=== PATIENT | male | born 1995 | race Two or more races ===

== ENCOUNTER 2025-05-31 22:34 | Emergency (ER) | payer SELFPAY ==
[2025-05-31 22:42] VITALS: BP 137/78
[2025-05-31 23:51] VITALS: BP 127/72
[2025-05-31 23:53] VITALS: BP 127/72
--- NOTE | 2025-06-01 00:27 | ED.GENMED ---
History of Present Illness
<Terri Worthington PA-C - Last Filed: 06/01/25 04:46>
General
Chief Complaint: Abdominal Pain
Source: patient
Exam Limitations: none
Time Seen by Provider: 06/01/25 00:19
Nursing documentation reviewed up to this point in time: agreed with
History of Present Illness
History of Present Illness:
Note:
CHIEF COMPLAINT(S)
Abdominal pain
HISTORY OF PRESENT ILLNESS
The patient is a 30-year-old male with no pmh with a complaint of abdominal pain. Patient is present with friend who is translating for him. He experienced the onset of pain yesterday, which is described as intermittent and accompanied by vomiting,
occurring twice last night. This episode resembles a previous occurrence approximately 2 to 3 weeks ago; however, the current episode is reported as more severe, especially last night. The pain started around 2:00 AM and persisted off and on for
about four hours, during which he was unable to sleep until around 6:00 AM. He feels it diffusely across the abdomen but reports that it will localize to the RLQ at times. Today, the patients pain has lessened in intensity but remains present and
continues to fluctuate in severity. There are no current symptoms of nausea, urinary issues, or significant diarrhea. No recent travel. The patient notes that the pain sometimes extends to the right side but does not radiate to the back or chest. No
clear exacerbating or relieving factors have been identified by the patient. He denies chest pain, shortness of breath, fevers, chills. Patient denies groin pain. He denies testicular pain.
PAST SURGICAL HISTORY
Denies any prior abdominal surgeries, including appendectomy or cholecystectomy.
Patient does not take any daily medications
SOCIAL HISTORY
Denies daily alcohol consumption or recreational drug use.
PHYSICAL EXAM
- General: Alert, no acute distress.
- Skin: Warm, dry.
- Head: Normocephalic, atraumatic.
- Neck: Supple, trachea midline.
- Eye, Ears, Nose, Mouth and Throat: Oral mucosa moist.
- Cardiovascular: Regular rate and rhythm, no murmurs. Normal peripheral perfusion, no edema.
- Respiratory: Respirations are non-labored. No wheezes, rales, or rhonchi
- Gastrointestinal: Abdomen nondistended,no epigastric tenderness to palpation, RLQ tenderness to palpation noted with guarding
- Neurological: Alert and oriented to person, place, time, and situation, no focal neurological deficit observed.
- Psychiatric: Cooperative, appropriate mood and affect.
PLAN
- Obtain a computed tomography (CT) scan to rule out appendicitis and to evaluate for other potential abdominal issues.
- Initiate intravenous (IV) access to provide medication for pain and nausea management.
- Monitor for improvement or progression of symptoms.
DIFFERENTIAL DIAGNOSIS
The Differential Diagnosis includes, in no particular order and is not limited to:
1. Appendicitis
2. Gastroenteritis
3. Peptic Ulcer Disease
4. Biliary Colic
5. Pancreatitis
6. Diverticulitis
7. Small Bowel Obstruction
8. Renal Colic
9. Irritable Bowel Syndrome
10. Gastritis
CHART REVIEW
No prior ER physician documentation to review
UPDATE
2:55 am--Patient notes that his pain is improved from earlier
He reports that he does have a primary care provider but cannot follow up with them yet because there is a gap in his insurance coverage which is expected to kick in in 2 weeks
MDM/DISPOSITION
The patient is a 30-year-old male with no pmh with a complaint of abdominal pain. Patient is present with friend who is translating for him. He experienced the onset of pain yesterday, which is described as intermittent and accompanied by vomiting,
occurring twice last night. He has not taken anything for the pain. On physical exam, he is well-appearing in no acute distress. His vitals are stable. He is afebrile. He has no upper abdominal tenderness but does have some guarding noted in the
right lower quadrant. Labs reviewed, no leukocytosis, CMP unremarkable. Lipase normal. Urinalysis shows no evidence of infection. Unclear etiology to patient's pain at this time however workup reassuring, patient feels well enough to go home.
Discussed strict return precautions, discussed following up in the office with primary care provider. Patient does have PCP however lacks insurance coverage at this time and is not able to see them, I did provide patient follow-up for the free
clinic. Also discussed evaluation by gastroenterology considering this is patient's second episode of symptoms. Patient stable for discharge.
Review of Systems
<Terri Worthington PA-C - Last Filed: 06/01/25 04:46>
Review of Systems
All Other Systems: ROS reviewed and negative except as documented in HPI and ROS
Phy Exam
<Terri Worthington PA-C - Last Filed: 06/01/25 04:46>
Physical Exam
Physical Exam:
see hpi
<Jane Nix PA-C - Last Filed: 06/01/25 15:17>
Physical Exam
Physical Exam:
GENERAL: Alert , in no apparent distress
EYE: pupils equal and reactive
NECK: Supple
ENT: o/p clr, mmm.
CARDIAC: Regular rate and rhythm .
LUNGS: Clear breath sounds bilaterally, no acute respiratory distress, no wheezes/rales/rhonchi
ABDOMEN: Soft, tender right lower quadrant no guarding or rebound, no focal neuro deficits
SKIN: Warm and dry, skin intact.
MUSCULOSKELETAL: No edema, well perfused. neg tim's sign
PSYCH: Normal and appropriate interaction.
Course
<Terri Worthington PA-C - Last Filed: 06/01/25 04:46>
Orders/Labs/Results
Orders:
Orders
06/01/25 00:41
CT Abd/Pel (IV only)-[facility] only Urgent
Comment:
Reason For Exam: RLQ pain
0.9% Sodium Chloride 500 ml [Nss] 500 ml IV Wide Open mls/hr
Ketorolac [Toradol] 15 mg IV NOW STA
Ondansetron Injectable [Zofran] 4 mg IV NOW STA
06/01/25 00:48
Complete Blood Count/With Diff Urgent
Comprehensive Metabolic Panel Urgent
Lipase Urgent
06/01/25 02:09
Urinalysis Reflex To Culture Urgent
Date Specimen was Collected: 06/01/25
Time Specimen was Collected: 02:07
Urine Microscopic Reflex Cult Urgent
06/01/25 14:09
Lidocaine HCl/Pf [Xylocaine-Mpf 1% Vial] 50 mg .ROUTE .STK-MED ONE
Propofol [Diprivan] 20 ml .ROUTE .STK-MED
Rocuronium [place] [Rocuronium] 50 mg .ROUTE .STK-MED ONE
06/01/25 14:10
Dexamethasone Sod Phosphate [Decadron] 20 mg .ROUTE .STK-MED ONE
Ondansetron Injectable [Zofran] 4 mg .ROUTE .STK-MED ONE
06/01/25 14:29
Fentanyl Citrate/Pf [Sublimaze] 100 mcg .ROUTE .STK-MED ONE
Midazolam HCl [Versed] 2 mg .ROUTE .STK-MED ONE
06/01/25 14:46
Ketamine 5 ml .ROUTE .STK-MED
Abnormal Lab Results
06/01/25 06/01/25
00:48 02:09
Absolute Monos (auto) 0.7 H 10^3/uL
(0.1-0.6)
Glucose 107 H mg/dl
(70-99)
Urine Urobilinogen 2+ A
(Neg - 1+)
Urine Albumin (Reflex) 2+ A
(Neg - Trace)
06/01/25 00:48
06/01/25 00:48
Vital Signs
Initial and Last Documented VS:
Initial Vital Signs
Temp Pulse Resp BP Pulse Ox
36.8 C 74 20 137/78 98
05/31/25 22:42 05/31/25 22:42 05/31/25 22:42 05/31/25 22:42 05/31/25 22:42
Last Documented Vital Signs
Temp Pulse Resp BP Pulse Ox
36.8 C 74 20 127/72 99
05/31/25 22:42 05/31/25 22:42 05/31/25 22:42 05/31/25 23:53 06/01/25 00:28
<Jane Nix PA-C - Last Filed: 06/01/25 15:17>
Orders/Labs/Results
Orders:
Orders
06/01/25 00:41
CT Abd/Pel (IV only)-[facility] only Urgent
Comment:
Reason For Exam: RLQ pain
0.9% Sodium Chloride 500 ml [Nss] 500 ml IV Wide Open mls/hr
Ketorolac [Toradol] 15 mg IV NOW STA
Ondansetron Injectable [Zofran] 4 mg IV NOW STA
06/01/25 00:48
Complete Blood Count/With Diff Urgent
Comprehensive Metabolic Panel Urgent
Lipase Urgent
06/01/25 02:09
Urinalysis Reflex To Culture Urgent
Date Specimen was Collected: 06/01/25
Time Specimen was Collected: 02:07
Urine Microscopic Reflex Cult Urgent
06/01/25 14:09
Lidocaine HCl/Pf [Xylocaine-Mpf 1% Vial] 50 mg .ROUTE .STK-MED ONE
Propofol [Diprivan] 20 ml .ROUTE .STK-MED
Rocuronium [place] [Rocuronium] 50 mg .ROUTE .STK-MED ONE
06/01/25 14:10
Dexamethasone Sod Phosphate [Decadron] 20 mg .ROUTE .STK-MED ONE
Ondansetron Injectable [Zofran] 4 mg .ROUTE .STK-MED ONE
06/01/25 14:29
Fentanyl Citrate/Pf [Sublimaze] 100 mcg .ROUTE .STK-MED ONE
Midazolam HCl [Versed] 2 mg .ROUTE .STK-MED ONE
06/01/25 14:46
Ketamine 5 ml .ROUTE .STK-MED
Abnormal Lab Results
06/01/25 06/01/25
00:48 02:09
Absolute Monos (auto) 0.7 H 10^3/uL
(0.1-0.6)
Glucose 107 H mg/dl
(70-99)
Urine Urobilinogen 2+ A
(Neg - 1+)
Urine Albumin (Reflex) 2+ A
(Neg - Trace)
06/01/25 00:48
06/01/25 00:48
Vital Signs
Initial and Last Documented VS:
Initial Vital Signs
Temp Pulse Resp BP Pulse Ox
36.8 C 74 20 137/78 98
05/31/25 22:42 05/31/25 22:42 05/31/25 22:42 05/31/25 22:42 05/31/25 22:42
Last Documented Vital Signs
Temp Pulse Resp BP Pulse Ox
36.8 C 74 20 127/72 99
05/31/25 22:42 05/31/25 22:42 05/31/25 22:42 05/31/25 23:53 06/01/25 00:28
<Jane Nix PA-C - Last Filed: 06/01/25 15:17>
MDM/Problems Addressed
Differential Diagnosis Includes:
see MDM
MDM/Problems Addressed:
Note:
CHIEF COMPLAINT(S)
Abdominal pain and vomiting.
HISTORY OF PRESENT ILLNESS
The patient is a 30 y/o male who presents with abdominal pain after being called back for radiologic discrepancy from last night.
pt saysThe symptoms started two to three weeks ago and initially resolved after 1 day but recurred yesterday. The patient experienced vomiting two to three times during the night and localized RLQ pain.
There was no accompanying fever reported. pt was seen last night
had labs (normal) and ct which was read as neg
he went home with continued RLQ pain
was called by radiologist saying that the appendix appears dilated and concerned pt had acute appendicitis.
i called the patient and spke with him and his brother who translated for me
he said hew as still having pain and he was told to return
The patient had his last meal the previous evening around 8 or 9 PM. Today, the patient has not had anything to eat or drink after waking up.
ADDITIONAL HISTORY OBTAINED FROM SOURCES OTHER THAN THE PATIENT
The patients brother, serving as a steward/stewardess club car, and the mother provided additional context for the timeline of symptoms and episodes of vomiting.
EXTERNAL RECORDS REVIEWED
Overnight radiology reports indicated no immediate findings; however, subsequent review by the morning radiologist noted slight dilation of the appendix, raising suspicion for appendicitis.
PLAN
The plan is to consult an on-call surgeon to evaluate the need for potential surgical intervention, considering the possibility of appendicitis. The patient is advised not to consume any oral intake due to the potential need for surgery. An
intravenous line will be re-established for further medical management and fluid administration.
DIFFERENTIAL DIAGNOSIS
The Differential Diagnosis includes, in no particular order and is not limited to:
1. Appendicitis
2. Gastroenteritis
3. Intestinal obstruction
4. Urinary tract infection
5. Gallbladder disease
6. Peptic ulcer disease
7. Mesenteric lymphadenitis
8. Pancreatitis
9. Viral gastroenteritis
10. Inflammatory bowel disease
30-year-old male returns for an over read of the CT scan showing possible acute appendicitis. Patient is tender in his right lower quadrant and had vomiting without fever. He last ate last night. I spoke with on-call surgeon Dr. Pratt who will
see the patient. IV Zosyn and n.p.o. status, plan for OR today
<Terri Worthington PA-C - Last Filed: 06/01/25 04:46>
*Pulse Oximetry
SaO2: 99
Oxygen Mode of Delivery: Room air
Patient hypoxic: no
*Critical Care Note
Total Time (30-74mins, 75-104mins- exclusive of procedures): Not Applicable
<Jane Nix PA-C - Last Filed: 06/01/25 15:17>
Update Note
Update Note:
06/01/2025 0836 AM
Received a call from [employer] saying the patient's appendix is slightly dilated and they disagree with the vision read overnight. I called the patient's number however no one answered. I called the primary care office and they were able to give me
another number with the last 4 digits [phone]. The patient did not answer the phone and then got his brother on the line because he does not speak [place]. The brother is going to translate to the patient that he needs to return to the emergency
department for concerns for appendicitis.
ED Attending Note
<Terri Worthington PA-C - Last Filed: 06/01/25 04:46>
-
Portions of this chart may have been created with voice recognition software.� Occasional wrong word or��sound alike� substitutions may have occurred due to the inherent limitations of voice recognition software.
Discharge Plan
Departure
Patient Disposition: Home (Routine Discharge)
Date of Disposition: 06/01/25
Time of Disposition: 03:03
Patient with high blood pressure during this ER visit?: Yes
Condition: Good
Discharge Problem:
Abdominal pain
Instructions: Abdominal Pain, BLOOD PRESSURE
Prescriptions:
No Action
No Current Medications
0
Referrals:
[facility] [Provider Group] - Call in 1-3 days for appt
Radha Figueroa MD [Active, Gastroenterology] - Call in 1-3 days for appt
Jyoti Leggett DO [Family Provider, Family Practice]
Activity Restrictions/Additional Instructions:
You can take Tylenol and Ibuprofen as needed for pain. Should you have the intermittent cramping again, you can try a bentyl tablet.
I highly recommend following up with your primary care provider. I also recommend evaluation by gastroenterology if you have continued discomfort.
PLEASE RETURN TO THE ER SHOULD YOU DEVELOP CHEST PAIN, SHORTNESS OF BREATH, AN ACUTE WORSENING OF YOUR RETURN OF YOUR SYMPTOMS WITHIN THE NEXT FEW DAYS, INTRACTABLE NAUSEA OR VOMITING, BLOODY STOOLS, VOMITING BLOOD, OR ANY OTHER SIGNS OR SYMPTOMS
WORRISOME TO YOU.
Interventions
Interventions:
*Risk Screen - Suicide Last Done: 06/01/25 03:21
*General Assessment Last Done: 05/31/25 22:42
*Neglect/Abuse Screening Last Done: 06/01/25 03:21
*ED- Fall Risk Assessment Last Done: 05/31/25 22:42
*ED COVID-19 Vaccine History Last Done: 06/01/25 03:21
*ED Influenza Vaccine History Last Done: 06/01/25 03:21
*Nursing Disposition Last Done: 06/01/25 03:21
EE-Gxssjm-Lxyvbriidg Assessment Last Done: 05/31/25 23:54
Discharge Date and Time
Discharge Date/Time: 06/01/25 03:22
Print Language: NEPALESE
[2025-06-01] MEDS: TORADOL 15 MG IV (00:49)
[2025-06-01] MEDS: ZOFRAN 4 MG IV (00:49)
[2025-06-01] MEDS: NSS 500 IV (00:50)
[2025-06-01 01:08] LABS: Hematocrit 40.0 % (39.0-52.0); Hemoglobin 13.6 g/dL (13.0-18.0); Mean Corp Hgb Conc. 34.0 g/dL (33.0-37.0); Mean Corpuscular Volume 84.0 fL (80.0-94.0); Nucleated Red Blood Cells % 0 % (-); Platelet Count 173 10^3/uL (130-400); Red Cell Dist. Width 12.4 % (11.5-14.5)
[2025-06-01 01:29] LABS: ALT (SGPT) 24 U/L (0-50); AST (SGOT) 18 U/L (17-59); Albumin 4.4 g/dl (3.5-5.0); Alkaline Phosphatase 74 U/L (38-126); Blood Urea Nitrogen 14 mg/dl (9-20); Calcium 9.1 mg/dl (8.4-10.2); Carbon Dioxide 30 mmol/L (22-30); Chloride 107 mmol/L (98-107); Glucose 107 mg/dl (70-99); Lipase 191 U/L (23-300); Potassium 4.5 mmol/L (3.5-5.1); Sodium 143 mmol/L (135-145); Total Protein 7.0 g/dl (6.3-8.2); eGFR > 60.00
[2025-06-01 02:39] LABS: Urine Character Clear (Clear)
[2025-06-01 02:45] LABS: Urine Red Blood Cell 0-2 /HPF (0-2); Urine Squamous Cell 0-2 /LPF (Few); Urine White Cell 0-2 /HPF (0-5)
== END 2025-06-01 03:22 | disposition home or self-care (01) ==
LOC: EMR 22:34
PROVIDERS: Physician Assistant; EMERGENCY PHYSICIAN Emergency Medicine; FAMILY PHYSICIAN Family Medicine
DX: R10.31 Right lower quadrant pain (principal); R93.5 Abnormal findings on diagnostic imaging of other abdominal regions, including retroperitoneum
CPT/HCPCS: 99284; 96374; 96375; 74177; 80053; 81003; 81015; 83690; 85025; Q9967

== ENCOUNTER 2025-06-01 15:00 | Day surgery (SDC) | payer SELFPAY ==
[2025-06-01] VITALS (14 sets, daily range): BP systolic 116–142; BP diastolic 69–82; BMI 28.7
[2025-06-01] MEDS: ZOSYN 50 IV ×2 (10:13→16:19)
[2025-06-01] MEDS: NSS 1000 IV (10:15)
--- NOTE | 2025-06-01 10:25 | ED.GENMED ---
History of Present Illness
General
Chief Complaint: Abdominal Pain
Time Seen by Provider: 06/01/25 09:36
History of Present Illness
History of Present Illness:
see MDM
Phy Exam
Physical Exam
Physical Exam:
GENERAL: Alert , in no apparent distress
EYE: pupils equal and reactive
NECK: Supple
ENT: o/p clr, mmm.
CARDIAC: Regular rate and rhythm .
LUNGS: Clear breath sounds bilaterally, no acute respiratory distress, no wheezes/rales/rhonchi
ABDOMEN: Soft, mild right lower quadrant tenderness no r/g, no cvat, normal bowel sounds
NEUROLOGICAL: Alert and oriented, no focal neuro deficits
SKIN: Warm and dry, skin intact.
MUSCULOSKELETAL: No edema, well perfused. neg tim's sign
PSYCH: Normal and appropriate interaction.
Course
Orders/Labs/Results
Orders:
Orders
06/01/25 09:59
0.9% Sodium Chloride 1000 ml [Nss] 1,000 ml IV BOLUS
Piperacillin/Tazo 3.375 Gram [Zosyn] 3.375 gram in 50 ml IV NOW
06/01/25 Lunch
NPO
Allow oral meds: Yes
Allow clear liquids: No
06/01/25 10:15
Lactated Ringers [Lr] 1,000 ml IV BOLUS
06/01/25 11:55
Acetaminophen [Tylenol] 650 mg PO Q4HPRN PRN
HYDROmorphone [Dilaudid] 0.5 mg IV Q3HPRN PRN
06/01/25 13:30
Fentanyl Citrate/Pf [Sublimaze] 25 mcg IV [id number] PRN
HYDROmorphone [Dilaudid] 0.25 mg IV PACU-Q5MPRN PRN
HYDROmorphone [Dilaudid] 0.5 mg IV PACU-Q5MPRN PRN
Normosol (Mult Electrolytes) [Normosol-R/Plasmalyte-A] 1,000 ml IV PER PROTOCOL
Ondansetron Injectable [Zofran] 4 mg IV PACU-ONCEPRN PRN
Prochlorperazine [Compazine] 5 mg IV PACU-ONCEPRN PRN
Notify MD As Directed
Notify physician if: for SDS patients with known or suspected sleep obstructive sleep apnea, monitor in the
PACU.
Notify MD for any apneic/desaturation episodes
O2 Therapy [RESP] Urgent
Titrate/Wean O2 to maintain O2 sat greater than (%): 92
Special Instructions: -Provide supplemental oxygen to achieve O2 sat of 92% or greater.
-After 15 min, may wean O2 and discontinue if patient is able to maintain O2 sat of 92%
or greater during recovery period.
If patient is a discharge home, without oxygen therapy, notify anestheiologist if
unable to maintain O2 SAT of 92% or greater on room air for MD clearance.
06/01/25 14:12
Bupivacaine 0.25%Pf/Epinephrin [Sensorcaine-Epi 0.25%-0.0005] 30 ml .ROUTE .STK-MED ONE
06/01/25 16:00
Piperacillin/Tazo 3.375 Gram [Zosyn] 3.375 gram in 50 ml IV Q6H
Vital Signs
Initial and Last Documented VS:
Initial Vital Signs
Temp Pulse Resp BP Pulse Ox
36.8 C 67 18 129/72 98
06/01/25 09:36 06/01/25 09:36 06/01/25 09:36 06/01/25 09:36 06/01/25 09:36
Last Documented Vital Signs
Temp Pulse Resp BP Pulse Ox
36.8 C 57 12 123/69 98
06/01/25 09:36 06/01/25 14:00 06/01/25 14:00 06/01/25 14:00 10/21/25 13:45
MDM/Problems Addressed
Differential Diagnosis Includes:
see MDM
MDM/Problems Addressed:
Note:
CHIEF COMPLAINT(S)
Abdominal pain and vomiting.
HISTORY OF PRESENT ILLNESS
The patient is a 30 y/o male who presents with abdominal pain after being called back for radiologic discrepancy from last night.
pt saysThe symptoms started two to three weeks ago and initially resolved after 1 day but recurred yesterday. The patient experienced vomiting two to three times during the night and localized RLQ pain.
There was no accompanying fever reported. pt was seen last night
had labs (normal) and ct which was read as neg
he went home with continued RLQ pain
was called by radiologist saying that the appendix appears dilated and concerned pt had acute appendicitis.
i called the patient and spke with him and his brother who translated for me
he said hew as still having pain and he was told to return
The patient had his last meal the previous evening around 8 or 9 PM. Today, the patient has not had anything to eat or drink after waking up.
ADDITIONAL HISTORY OBTAINED FROM SOURCES OTHER THAN THE PATIENT
The patients brother, serving as a buggy man, and the mother provided additional context for the timeline of symptoms and episodes of vomiting.
EXTERNAL RECORDS REVIEWED
Overnight radiology reports indicated no immediate findings; however, subsequent review by the morning radiologist noted slight dilation of the appendix, raising suspicion for appendicitis.
PLAN
The plan is to consult an on-call surgeon to evaluate the need for potential surgical intervention, considering the possibility of appendicitis. The patient is advised not to consume any oral intake due to the potential need for surgery. An
intravenous line will be re-established for further medical management and fluid administration.
DIFFERENTIAL DIAGNOSIS
The Differential Diagnosis includes, in no particular order and is not limited to:
1. Appendicitis
2. Gastroenteritis
3. Intestinal obstruction
4. Urinary tract infection
5. Gallbladder disease
6. Peptic ulcer disease
7. Mesenteric lymphadenitis
8. Pancreatitis
9. Viral gastroenteritis
10. Inflammatory bowel disease
30 y/o M
no pmh
here with RLQ pain
had ED visit last night with vision reading of CT as neg
this am i received call regarding pt having signs of appendicitis
he has tender RQL but no fever currently
dr. saravia from surgery consulte
*Pulse Oximetry
SaO2: 99
Oxygen Mode of Delivery: Room air
Patient hypoxic: no (98)
*Critical Care Note
Total Time (30-74mins, 75-104mins- exclusive of procedures): Not Applicable
ED Attending Note
-
Portions of this chart may have been created with voice recognition software.� Occasional wrong word or��sound alike� substitutions may have occurred due to the inherent limitations of voice recognition software.
Discharge Plan
Departure
Patient Disposition: OR
Date of Disposition: 06/01/25
Time of Disposition: 13:35
Admit to: OR
Presentation/result/management discussed w/ accepting /: manjit
Patient with high blood pressure during this ER visit?: No
Condition: Fair
Discharge Problem:
Acute appendicitis
Interventions
Interventions:
*Risk Screen - Suicide Last Done: 06/01/25 09:36
*General Assessment Last Done: 06/01/25 09:36
*Neglect/Abuse Screening Last Done: 06/01/25 09:36
*ED- Fall Risk Assessment Last Done: 06/01/25 09:36
*ED COVID-19 Vaccine History Last Done: 06/01/25 09:36
*ED Influenza Vaccine History Last Done: 06/01/25 09:36
*Nursing Disposition Last Done: 06/01/25 14:30
JK-Exnkfq-Slbzkwnkyu Assessment Last Done: 06/01/25 10:08
Discharge Date and Time
Discharge Date/Time: 06/01/25 14:20
--- NOTE | 2025-06-01 11:51 | CON.GS ---
Medical History
-
Chief Complaint: Abdominal pain
History of Present Illness:
Patient is a 30 yo M with no pertinent PMH who presents with 48 hours of RLQ abdominal pain. Pain began acutely on Saturday evening into Saturday. Associated episode of nausea and vomiting at that time. No fevers or chills. Fluctuations in GI
function. No chronic GI issues. He reports an isolated episode of similar abdominal pain approximately 3 weeks ago which resolved within 24 hours. 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 He denies any symptoms in the
intervening period of time. Family history unremarkable.
Past Medical History
Past Medical History: None
Past Surgical History: None
Social History
Tobacco: Non-Smoker
Alcohol: None
Drug: None
Family History
Family History: Reviewed & Noncontributory
Allergies / Home Medications
Allergy/AdvReac Type Severity Reaction Status Date / Time
No Known Allergies Allergy Verified 06/01/25 09:34
�Medication �Instructions �Recorded �Confirmed �Type
No Meds [No Current Medications] 06/01/25 06/01/25 History
Review of Systems
-
A 10 point review of systems was completed, and was negative except as per HPI.
Physical Exam
Vital Signs
Temp Pulse Resp BP Pulse Ox
98.3 F 64 16 126/71 99
06/01/25 09:36 06/01/25 10:09 06/01/25 10:09 06/01/25 10:09 06/01/25 10:26
05/31/25 06/01/25 06/02/25
06:59 06:59 06:59
Actual Weight 96 kg
Body Mass Index (BMI) 28.7
Physical Exam
General: Well Developed, Well Nourished and No Apparent Distress
HEENT: Normocephalic and Anicteric
Respiratory: Non Labored Respirations
Cardiac: Regular Rhythm
GI: Soft, Non Distended, Tender (RLQ) and Other (No diffuse peritonitis)
Musculoskeletal: No Edema
Skin: Warm and Dry
Neuro: Nonfocal/Grossly Intact
Data Reviewed
-
CT Scan: Image Personally Visualized and interpreted and Report Reviewed by me
Labs: Labs Reviewed by me
Assessment / Plan
-
Patient is a 30 yo M p/w acute appendicitis
The natural history and pathophysiology of appendicitis was discussed. Anatomy was reviewed. CT scan imaging as a relates to his appendix was reviewed. Options for management including medical management with antibiotics versus surgical
management with appendectomy were considered and discussed. The pros and cons of both approaches was discussed. Specifically, we discussed failure of medical management and future episodes of appendicitis versus surgical risks. Recommend and plan
for appendectomy.
Plan for a laparoscopic appendectomy. The procedure itself, as well as the risks, benefits, and alternatives was discussed. Specifically, we discussed the risks of bleeding, infection, injury to surrounding structures (bowel, bladder), staple line
leak, need for open procedure. Typical postprocedure recovery was discussed. All questions answered. Consent signed.
Of note, an market development trainer was used for this encounter.
-- Laparoscopic appendectomy
-- NPO, IVF
-- Abx: Zosyn
-- Pain control: Tylenol, IV Dilaudid PRN
--- NOTE | 2025-06-01 11:55 | W.SUR.PREOP ---
Pre-Operative Surgical Note
-
I have examined this patient prior to the performance of the scheduled procedure.
The patient's condition is unchanged from the time of the current History and
Physical and the patient is able to undergo the scheduled procedure.
--- NOTE | 2025-06-01 15:50 | W.IMMPOSTOP ---
Surgical Immed Post Op Note
-
Primary Surgeon: Zach
Assisting Surgeon: None
Pre-op Diagnosis: Acute appendicitis
Post-op Diagnosis: Acute appendicitis
Procedure Performed: Laparoscopic appendectomy
Anesthesia Type: General
Specimen / Cultures:
1. Appendix
Estimated Blood Loss: 3 cc
Complications: None
Operative Findings:
1. Dilated and inflamed appendix, no evidence of perforation or spillage
2. Mesentery taken with Ligasure, base with tamez load stapler
[2025-06-01] MEDS: ROXICODONE 5 MG PO (17:00)
== END 2025-06-01 17:26 | disposition home or self-care (01) ==
LOC: SDS 15:00
PROVIDERS: ATTENDING PHYSICIAN Surgery; EMERGENCY PHYSICIAN Emergency Medicine; FAMILY PHYSICIAN Family Medicine
DX: K35.80 Unspecified acute appendicitis (principal)
CPT/HCPCS: 44970; 88304; 96365; 99284